=== PATIENT | female | born 1970 | race Caucasian/White ===

== ENCOUNTER → 2019-12-10 | Outpatient (REF) | payer OTHER, SELFPAY | LOC: M LAB REF 17:58 | PROVIDERS: ATTEND Dermatology | DX: D03.59 Melanoma in situ of other part of trunk (principal) ==

== ENCOUNTER → 2022-10-12 | Outpatient (REF) | payer OTHER | LOC: M SFHCDERM 12:41 | PROVIDERS: ATTEND Nurse Practitioner Family | DX: L57.0 Actinic keratosis (principal) ==

== ENCOUNTER → 2023-06-22 | Outpatient (REF) | payer OTHER | LOC: M SFHCDERM 17:47 | PROVIDERS: ATTEND Nurse Practitioner Family | DX: L85.9 Epidermal thickening, unspecified (principal); L98.499 Non-pressure chronic ulcer of skin of other sites with unspecified severity; L08.9 Local infection of the skin and subcutaneous tissue, unspecified ==